=== PATIENT | male | born 1945 | race Caucasian/White ===

== ENCOUNTER 2024-11-07 13:48 | Emergency (ER) | payer MEDICARE, BC, SELFPAY ==
--- NOTE | 2024-11-07 17:17 | ED.GENMED ---
History of Present Illness
General
Chief Complaint: Musculo-Skeletal Complaint
Source: patient
Time Seen by Provider: 11/07/24 17:05
History of Present Illness
History of Present Illness:
79-year-old male presents to the emergency room for evaluation of ankle pain. Patient was standing on a small stepstool when it slipped causing him to twist his left ankle. He developed pain immediately. He has pain with weightbearing. No head
injury. No anticoagulants.
Phy Exam
Physical Exam
Physical Exam:
General: Awake, Alert, Oriented X3. No acute distress.
Vitals: unremarkable
Head: Atraumatic
Eyes: Pupils equal, EOMI
Neck: Trachea midline
Neuro: Nonfocal
Skin: Warm, dry, no rash
Extremities: pulses equal b/l, no edema. Swelling noted right ankle point tenderness over the distal lateral malleolus on the right. No obvious instability. Neurovascularly intact.
Course
Orders/Labs/Results
Orders:
Orders
11/07/24 13:57
CR Ankle - Right Min 3 Views * Urgent
Comment:
Reason For Exam: fall, swelling, pain
11/07/24 17:13
Acetaminophen [Tylenol] 1,000 mg PO NOW STA
11/07/24 17:16
boot [Ortho Boot Right- Treatment] ONCE
Short or tall?: Short
Vital Signs
Initial and Last Documented VS:
Initial Vital Signs
Temp Pulse Resp Pulse Ox
98.1 F 64 18 97
11/07/24 13:52 11/07/24 13:52 11/07/24 13:52 11/07/24 13:52
Last Documented Vital Signs
Temp Pulse Resp Pulse Ox
98.1 F 64 18 97
11/07/24 13:52 11/07/24 13:52 11/07/24 13:52 11/07/24 17:21
MDM/Problems Addressed
Differential Diagnosis Includes:
Fracture, sprain, dislocation
MDM/Problems Addressed:
No obvious fx. However given the amount of pain and swelling will place in boot for support.
*Radiology
Radiology exam reviewed: preliminary read by ED provider (no fx noted)
*Pulse Oximetry
SaO2: 97
Oxygen Mode of Delivery: Room air
Patient hypoxic: no
*Critical Care Note
Total Time (30-74mins, 75-104mins- exclusive of procedures): Not Applicable
ED Attending Note
-
Portions of this chart may have been created with voice recognition software.� Occasional wrong word or��sound alike� substitutions may have occurred due to the inherent limitations of voice recognition software.
Discharge Plan
Departure
Patient Disposition: Home (Routine Discharge)
Date of Disposition: 11/07/24
Time of Disposition: 17:22
Patient with high blood pressure during this ER visit?: No
Condition: Good
Discharge Problem:
Ankle sprain
Instructions: Ankle sprain - ED discharge instructions
Referrals:
Adeel Carlson MD [Active, Orthopedics]
Activity Restrictions/Additional Instructions:
I don't see a fracture on your ankle x-ray. We have provided you with a ortho boot for support. F/u orthopedics if you are not feeling significantly better after 3 days.
Interventions
Interventions:
*Risk Screen - Suicide Last Done: 11/07/24 13:52
*General Assessment Last Done: 11/07/24 16:58
*Neglect/Abuse Screening Last Done: 11/07/24 16:58
*ED- Fall Risk Assessment Last Done: 11/07/24 16:58
*ED COVID-19 Vaccine History Last Done: 11/07/24 16:58
*Nursing Disposition Last Done: 11/07/24 17:35
ED-Musculoskeletal Assessment Last Done: 11/07/24 16:58
Discharge Date and Time
Discharge Date/Time: 11/07/24 17:39
Print Language: MAORI
[2024-11-07] MEDS: TYLENOL 1000 MG PO (17:20)
== END 2024-11-07 17:39 | disposition home or self-care (01) ==
LOC: EMR 13:48
PROVIDERS: EMERGENCY PHYSICIAN Emergency Medicine
DX: S93.401A Sprain of unspecified ligament of right ankle, initial encounter (principal); X50.1XXA Overexertion from prolonged static or awkward postures, initial encounter
CPT/HCPCS: 99283; 73610